=== PATIENT | female | born 1990 | race Two or more races ===

== ENCOUNTER 2017-10-04 18:31 | Emergency (ER) | payer OTHER ==
[~2017-10-04] VITALS: Ht 170.2 cm; Wt 145.1 kg
[~2017-10-04 18:31] MED LIST: SYNTHROID112 MCG
== END 2017-10-04 20:50 | disposition home or self-care (01) ==
LOC: ER 18:31
DX: M94.0 Chondrocostal junction syndrome [Tietze] (principal)

== ENCOUNTER 2019-02-21 19:43 | Emergency (ER) | payer OTHER ==
[~2019-02-21] VITALS: Ht 170.2 cm; Wt 107.5 kg
[2019-02-21] MEDS ORDERED: SYNTHROID125 MCG (20:00)
[2019-02-21] MEDS ORDERED: METFORMIN HCL500 M2 (20:00)
[2019-02-22] MEDS ORDERED: BACTRIM 400-801 EACH PO (04:20)
[2019-02-22] MEDS ORDERED: MUPIROCIN22 GM TOP (04:20)
== END 2019-02-22 04:23 | disposition home or self-care (01) ==
LOC: ER 19:43
DX: N76.0 Acute vaginitis (principal); E11.65 Type 2 diabetes mellitus with hyperglycemia

== ENCOUNTER 2020-05-10 19:26 | Inpatient (IN) | payer OTHER ==
[~2020-05-10] VITALS: Ht 170.2 cm; Wt 68.0 kg
[~2020-05-10 19:26] MED LIST changes: +BACTRIM 400-801 EACH PO; +METFORMIN HCL500 M2; +MUPIROCIN22 GM TOP; +SYNTHROID125 MCG
--- NOTE | 2020-05-10 19:50 | NUR ---
SE RECIBE PTE LETARGICA ACOMPANADA DE FAMILIAR EN AMBULANCIA LA CUAL REFIERE TRAER A PTE POR DESCONTROL DE AZUCAR, SE OBSERVA A PTE CONPENSANDO RESPIRATORIAMENTE. SE RADHA S/V A PTE Y SE DOCUMENTAN, SE BANDAR DXT COVER A PTE Y SE COLOCA EN UNIDAD DE CRITICO.
--- NOTE | 2020-05-10 22:13 | NUR ---
PACIENTE DESORIENTADA EN COMPANIA DE FAMILIAR. SE RE ORIENTA A LOS FAMILIARES SOBRE EL TRATAMIENTO ORDENADO POR EL MEDICO LOS MISMOS REFIEREN ENTENDER. BAJO MEDIDAS ASEPTICAS SE CANALIZA EN BRAZO RT CON ANGIO #18 PATENTE GABRIEL DE EDEMA Y ERITEMA. SE RADHA MUESTRAS DE LABORATORIO Y SE ADMINISTRAN MEDICAMENTOS KHOI ORDENES MEDICAS. SE INSERTA WATSON #16 PATENTE DRENANDO ORIDEIRDRE ISLAS. SE PROCEDE A ENTUBAR POR ANESTESIOLOGIA DR: MATTHEW - VERSED 5 MG - PROPOFOL 10 ML - TUBO ENDOTRAQUEAL # 7 - NGT 18 ORIFICIO RT PATENTE DRENANDO SECREWCIONES 1,300 ML. SE BVRINDA PRIVACIDAD Y SEGURIDAD EN TODO MOMENTO Y SE ASISTE A MARTIN NECEASIDADES FISIOLOGICAS. PACIENTE AL MOMENTO ESTABLE DENTYRO DE DAVID CONDICION MEDICA. RESTINGUIDA EN LAS ESTREMNIDADES SUPERIORES Y SE COMIENZAN RONDAS FRECUENTES PARA ESTIMAR ESTREMIDADES RESTRINGIDAS.
[2020-05-15] MEDS ORDERED: HUMALOG100 UNIT/1 SUBCUTANEO ×2 (18:10→20:49)
[2020-05-15] MEDS ORDERED: LEVOTHYROXINE125 MCG PO (18:11)
[2020-05-15] MEDS ORDERED: CLOTRIMAZOLE/BE15 GM TOP (18:12)
[2020-05-15] MEDS ORDERED: LANTUS SOL100 UNIT/1 SUBCUTANEO ×2 (18:14→20:49)
[2020-05-15] MEDS ORDERED: CLOTRIMAZOLE-BE15 GM TOP (20:49)
[2020-05-15] MEDS ORDERED: SYNTHROID125 MCG PO (20:49)
== END 2020-05-15 18:35 | disposition home or self-care (01) | DRG 637 ==
LOC: ER 19:26 → ICU-2 22:56 → SEC-K 05-14 12:49 → SURG-SUITE 05-14 17:25 → MEDI 05-14 17:37 → MEDJ 05-14 17:37 → MEDI 05-14 17:37
PROVIDERS: ADMIT Internal Medicine; ATTEND Internal Medicine
PROC: 0BH17EZ Insertion of Endotracheal Airway into Trachea, Via Natural or Artificial Opening (ICD-10-PCS; principal; 2020-05-10)
PROC: 5A1945Z Respiratory Ventilation, 24-96 Consecutive Hours (ICD-10-PCS; 2020-05-10)
PROC: 4A033R1 Measurement of Arterial Saturation, Peripheral, Percutaneous Approach (ICD-10-PCS; 2020-05-10)
PROC: BB24ZZZ Computerized Tomography (CT Scan) of Bilateral Lungs (ICD-10-PCS; 2020-05-12)
PROC: 02HV33Z Insertion of Infusion Device into Superior Vena Cava, Percutaneous Approach (ICD-10-PCS; 2020-05-13)
PROC: 3E0F7GC Introduction of Other Therapeutic Substance into Respiratory Tract, Via Natural or Artificial Opening (ICD-10-PCS; 2020-05-13)
DX: E11.10 Type 2 diabetes mellitus with ketoacidosis without coma (principal); J96.90 Respiratory failure, unspecified, unspecified whether with hypoxia or hypercapnia; N17.9 Acute kidney failure, unspecified; E87.2 Acidosis; E86.0 Dehydration; E03.8 Other specified hypothyroidism; E87.6 Hypokalemia; M94.0 Chondrocostal junction syndrome [Tietze]; Z20.828 Contact with and (suspected) exposure to other viral communicable diseases

== ENCOUNTER 2020-07-23 08:19 | Emergency (ER) | payer OTHER ==
[~2020-07-23] VITALS: Ht 170.2 cm; Wt 77.1 kg
[~2020-07-23 08:19] MED LIST changes: +CLOTRIMAZOLE-BE15 GM TOP; +CLOTRIMAZOLE/BE15 GM TOP; +HUMALOG100 UNIT/1 SUBCUTANEO; +LANTUS SOL100 UNIT/1 SUBCUTANEO; +LEVOTHYROXINE125 MCG PO; +SYNTHROID125 MCG PO
[2020-07-23] MEDS ORDERED: HUMULIN N100 UNIT/2 SQ (08:38)
== END 2020-07-23 09:12 | disposition home or self-care (01) ==
LOC: ER 08:19
DX: H00.11 Chalazion right upper eyelid (principal)

== ENCOUNTER 2020-07-28 02:30 | Emergency (ER) | payer OTHER ==
[~2020-07-28] VITALS: Ht 170.2 cm; Wt 77.1 kg
[~2020-07-28 02:30] MED LIST changes: +HUMULIN N100 UNIT/2 SQ
== END 2020-07-28 05:06 | disposition home or self-care (01) ==
LOC: ER 02:30
DX: R00.2 Palpitations (principal)

== ENCOUNTER 2020-08-25 20:48 | Emergency (ER) | payer OTHER ==
[~2020-08-25] VITALS: Ht 170.2 cm; Wt 79.4 kg
== END 2020-08-25 23:17 | disposition home or self-care (01) ==
LOC: ER 20:48
DX: E03.8 Other specified hypothyroidism (principal); Z03.818 Encounter for observation for suspected exposure to other biological agents ruled out; R00.2 Palpitations

== ENCOUNTER 2021-09-14 12:00 | Emergency (ER) | payer OTHER ==
[~2021-09-14] VITALS: Ht 170.2 cm; Wt 114.3 kg
[2021-09-14] MEDS ORDERED: KETO10TA2 PO (15:55)
== END 2021-09-14 16:00 | disposition home or self-care (01) ==
LOC: ER 12:00
DX: S99.922A Unspecified injury of left foot, initial encounter (principal); W18.30XA Fall on same level, unspecified, initial encounter; Y93.9 Activity, unspecified; Y92.9 Unspecified place or not applicable; Y99.9 Unspecified external cause status; E11.9 Type 2 diabetes mellitus without complications; Z79.4 Long term (current) use of insulin

== ENCOUNTER 2022-05-20 12:15 | Emergency (ER) | payer OTHER ==
[~2022-05-20] VITALS: Ht 170.2 cm; Wt 122.0 kg
[~2022-05-20 12:15] MED LIST changes: +KETO10TA2 PO
[2022-05-20] MEDS ORDERED: LEVO-T200 MCG (13:39)
[2022-05-20] MEDS ORDERED: HUMALOG KW100 UNIT/1 (13:40)
[2022-05-20] MEDS ORDERED: NEURONTIN300 MG PO (16:10)
== END 2022-05-20 16:14 | disposition home or self-care (01) ==
LOC: ER 12:15
DX: G50.0 Trigeminal neuralgia (principal)

== ENCOUNTER 2022-08-16 15:52 | Emergency (ER) | payer OTHER ==
[~2022-08-16] VITALS: Ht 170.2 cm; Wt 121.6 kg
[~2022-08-16 15:52] MED LIST changes: +HUMALOG KW100 UNIT/1; +LEVO-T200 MCG; +NEURONTIN300 MG PO
== END 2022-08-16 20:38 | disposition home or self-care (01) ==
LOC: ER 15:52
DX: M62.838 Other muscle spasm (principal)

== ENCOUNTER 2023-10-14 16:18 | Emergency (ER) | payer OTHER ==
[~2023-10-14] VITALS: Ht 330.2 cm; Wt 131.5 kg
[2023-10-14] MEDS ORDERED: TOPROL XL25 M1 PO (17:35)
[2023-10-14] MEDS ORDERED: FAMOTIDINE/PF 20 MG in 0.9 % SODIUM CHLORIDE 8 ML IV PUSH STA (18:42)
[2023-10-14] MEDS ORDERED: 0.9 % SODIUM CHLORIDE 1,000 ML IV SCH (18:45)
[2023-10-14] MEDS ORDERED: ONDANSETRON HCL 2 MG/ML VIAL IV ONE (18:45)
[2023-10-14] MEDS ORDERED: KETOROLAC TROMETHAMINE 30 MG VIAL IV ONE (19:00)
[2023-10-14 19:31] LABS: HEMATOCRIT 38.2 % (36.0-45.00); HEMOGLOBIN 12.8 g/dL (12.0-15.00); MEAN CELL VOLUME 76.7 fL (80.00-100.00); MEAN CORPUSCULAR HEMOGLOBIN 25.7 pg (27.00-32.0); MEAN CORPUSCULAR HGB CONC 33.5 g/dl (32.0-36.0); PLATELET COUNT 286 K/uL (150-450); RED BLOOD COUNT 4.98 M/uL (4.00-6.00); RED CELL DISTRIBUTION WIDTH 15.8 % (11.5-14.5)
[2023-10-14 19:59] LABS: ALBUMIN 3.8 gm/dL (3.4-5.0); BILIRUBIN TOTAL 0.54 mg/dL (0.3-1.2); CREATININE SERUM 0.98 mg/dL (0.55-1.02); GFR 64.96; GLOBULINA 4.1 G/DL (2.4-3.5); POTASSIUM 3.91 mEq/L (3.5-5.1); TOTAL PROTEIN 7.9 gm/dL (6.4-8.2)
[2023-10-14 21:04] LABS: PH,URINE 5.5 (5.0-8.0); URINE APPEARANCE Clear; URINE BILIRRUBIN Negative (NEGATIVE); URINE BLOOD Negative; URINE COLOR Yellow; URINE LEUKOCYTE Negative; URINE NITRATE Negative; URINE PROTEIN Negative (NEGATIVE); URINE UROBILINOGEN 0.2 E.U./dl
[2023-10-14 21:07] LABS: URINE BACTERIA 794.9 uL (0.0-1933); URINE EPITHELIAL CELLS 29.5 uL (0.0-38.8); URINE RBC 3.5 uL (0.0-20.8); URINE WBC 52.5 uL (0.0-23.2)
[2023-10-14 21:11] LABS: URINE GLUCOSE >=1000 MG/DL (NEGATIVE)
[2023-10-14] MEDS ORDERED: PEPCID AC20 MG PO (22:11)
[2023-10-14] MEDS ORDERED: ONDANSETRON ODT8 MG PO (22:11)
[2023-10-14] MEDS ORDERED: ZITHROMAX500 MG PO (22:11)
== END 2023-10-14 22:29 | disposition home or self-care (01) ==
LOC: ER 16:18
PROVIDERS: General Practice
DX: B34.9 Viral infection, unspecified (principal); R53.81 Other malaise; Z20.822 Contact with and (suspected) exposure to COVID-19

== ENCOUNTER 2024-11-21 13:20 | Emergency (ER) | payer OTHER ==
[~2024-11-21] VITALS: Ht 167.6 cm; Wt 104.3 kg
[~2024-11-21 13:20] MED LIST changes: +ONDANSETRON ODT8 MG PO; +PEPCID AC20 MG PO; +TOPROL XL25 M1 PO; +ZITHROMAX500 MG PO
[2024-11-21] MEDS ORDERED: KETOROLAC TROMETHAMINE 30 MG VIAL IM ONE (15:00)
[2024-11-21] MEDS ORDERED: KETOROLAC TROMETHAMINE 30 MG VIAL ONE ×2 (15:16→15:42)
== END 2024-11-21 16:31 | disposition home or self-care (01) ==
LOC: ER 13:35
DX: G89.11 Acute pain due to trauma (principal); M79.671 Pain in right foot; I10 Essential (primary) hypertension; E11.9 Type 2 diabetes mellitus without complications; Z79.4 Long term (current) use of insulin

== ENCOUNTER → 2025-04-20 | Emergency (ER) | payer OTHER ==
[~2025-04-20] VITALS: Ht 170.2 cm; Wt 133.8 kg
[~2025-04-20] MED LIST changes: +BACTRIM DS TAB1 EACH PO; +CEFTRIAXONE SODIUM 1,000 MG VIAL IM STA; +CEFTRIAXONE SODIUM 1,000 MG VIAL ONE; +SYNTHROID200 MCG PO
[2025-04-20 17:53] LABS: BASO % 0.7 % (0.1-1.2); EOS # 0.14 (0.04-0.54); EOS % 2.3 % (0.7-7.0); LYMPH # 2.01 (1.18-3.74); LYMPH % 33.7 % (19.3-53.1); MEAN PLATELET VOLUME 8.90 fl (9.4-12.4); MONO # 0.38 (0.24-0.82); MONO % 6.4 % (4.7-12.5); NEUT # 3.39 (1.56-6.13); NEUT % 56.7 % (34.0-71.1); RED CELL DISTRIBUTION WIDTH 12.8 % (11.6-14.4)
== END | disposition home or self-care (01) ==
LOC: ER 16:01
PROVIDERS: General Practice
DX: L60.0 Ingrowing nail (principal); E11.9 Type 2 diabetes mellitus without complications; Z79.4 Long term (current) use of insulin; E07.89 Other specified disorders of thyroid